=== PATIENT | female | born 1990 | race African-American/Black ===

== ENCOUNTER 2023-01-06 20:25 | Emergency (ER) | payer OTHER, SELFPAY ==
[2023-01-06] VITALS (9 sets, daily range): BP systolic 107–117; BP diastolic 64–79; PULSE 69–85; RESP 13–22; TEMP 37.1; O2SAT 95–100; BMI 26.6
[2023-01-06 21:12] LABS: Add Manual Diff / Slide Review NO; Basophils Absolute Auto 0 /uL (0-100); Basophils Percent Auto 0.3 % (0-2); Eosinophils Absolute Auto 200 /uL (0-450); Eosinophils Percent Auto 2.1 % (2-4); Hematocrit 33.9 % (36-46); Hemoglobin 11.4 g/dL (12.0-16.0); Lymphocytes Absolute Auto 3400 /uL (1100-4500); Lymphocytes Percent Auto 37.1 % (25-40); Mean Corpuscular HGB Conc 33.7 % (30-36); Mean Corpuscular Hemoglobin 30.5 PG (26-34); Mean Corpuscular Volume 90.5 fL (80-100); Monocytes Absolute Auto 500 /uL (0-900); Monocytes Percent Auto 5.3 % (3-14); Neutrophils Absolute Auto 5100 /uL (1500-7000); Neutrophils Percent Auto 55.2 % (50-75); Platelet Count 189 X10^3/uL (150-400); Red Blood Cell Count 3.75 X10^6/uL (4.0-5.2); Red Cell Distribution Width 12.5 % (11.6-14.8); White Blood Cell Count 9.2 X10^3/uL (4.5-11.0)
[2023-01-06 21:13] LABS: Ictotest Urine Negative (Negative)
--- NOTE | 2023-01-06 21:19 | PC.NURSE ---
Pt reports being sent her by her doctor regarding concerns for possible gallbladder issues. Pt has intermittent, sharp, mid-right back pain that began Friday while cooking with no relief from home meds, as well as some difficulty with urination and not making much. Pt had gastric sleeve in 2020 with no complications and has lost 130lbs since then. Pt denies abdominal pain, denies chest pain, denies SOB. LS are clear throughout all posterior wagner. Last BM on . Bowel sounds are active throughout all quadrants. Hx of asthma. Call light within reach. Encouraged to use for needs.
[2023-01-06 21:43] LABS: Alanine Aminotransferase 23 IU/L (<35); Albumin 4.1 g/dL (3.5-5.0); Albumin Globulin Ratio 1.2 (1.0-2.8); Alkaline Phosphatase 64 U/L (38-126); Aspartate Aminotransferase 23 IU/L (14-36); Bilirubin Total 0.4 mg/dL (0.2-1.3); Calcium 8.7 mg/dL (8.4-10.2); Carbon Dioxide 25 mmol/L (22-32); Chloride 104 mmol/L (98-107); Estimated Glomerular Filt Rate > 60 mL/min (>60); Globulin 3.3 g/dL (1.7-4.1); Glucose 102 mg/dL (70-100); HEMOLYSIS < 15 (0-50); Lipase 147 U/L (23-300); Potassium 3.4 mmol/L (3.4-5.1); Sodium 137 mmol/L (137-145); Total Protein 7.4 g/dL (6.3-8.2)
[2023-01-06 21:44] LABS: BUN Creatinine Ratio 16.9 (6-22); Blood Urea Nitrogen 12 mg/dL (7-17)
--- NOTE | 2023-01-06 22:47 | ED_ITS ---
HPI - Back Pain/Injury General Chief Complaint: Back Pain/Injury Stated Complaint: Back pain starting on friday Time Seen by Provider: 01/06/23 20:50 Source: patient History of Present Illness HPI Narrative: Patient is a 32-year-old female history of gastric sleeve presenting today with right flank pain. She reports it has been ongoing for about 4-5 days. She had fever 2 days ago. It is in her right flank it hurts to move and breathe. She denies any injury. It does not radiate or move around to her abdomen or groin. She went to [facility] where she got Dilaudid and prednisone she says it has not helped. She is taken Percocet without any relief she took Dewy Rose without any relief. She denies any nausea or vomiting. Pain is just generally not well controlled. Related Data Home Medications Medication Instructions Recorded Confirmed citalopram 20 mg tablet (Celexa) 20 mg PO QDAY ##0 04/10/17 Previous Rx's Medication Instructions Recorded hydrocodone 5 mg-acetaminophen 325 1 - 2 tab PO Q6HP PRN #10 tabs 04/10/17 mg tablet (Dewy Rose) naproxen 500 mg tablet (Naprosyn) 500 mg PO BIDP PRN #10 tabs 04/10/17 lidocaine 5 % topical patch 1 patch topical DAILY PRN pain 01/07/23 (scale score 4-6) #30 ea Allergies Allergy/AdvReac Type Severity Reaction Status Date / Time penicillin G [PENICILLIN G] Allergy Severe anaphylaxis Verified 01/06/23 23:44 Review of Systems Review of Systems ROS Unobtainable: All systems reviewed & are unremarkable except as noted in HPI and below Patient History Social History Smoking Status: Former smoker Smoking Status: Former smoker Substance Use Type: does not use Exam Initial Vital Signs Initial Vital Signs: Vital Signs Temperature 98.8 F 01/06/23 20:32 Pulse Rate 84 01/06/23 20:32 Respiratory Rate 18 01/06/23 20:32 Blood Pressure 115/75 01/06/23 20:32 Pulse Oximetry 95 01/06/23 20:32 Oxygen Delivery Method Room Air 01/06/23 20:32 GENERAL: Alert well-appearing 32-year-old female and in no acute distress. HEENT: Head atraumatic,EOMI, pupils reactive, face symmetric, moist mucous membranes CARDIOVASCULAR: Regular rate and rhythm without murmurs, rubs or gallops. RESPIRATORY: Breath sounds equal bilaterally, no wheezes rales or rhonchi. ABDOMEN: Soft, nontender. Normoactive bowel sounds all 4 quadrants. No guarding or rebound. : Right flank pain EXTREMITIES: Normal range of motion, no clubbing or edema. Neurovascularly intact NEUROLOGICAL: Alert and oriented x4. SKIN: Warm, dry, no laceration, no petechiae, no rashes or lesions. Course Orders Ordered: ED Orders 01/06/23 20:52 EKG-12 Lead Stat 01/06/23 21:04 Ictotest Urine Stat 01/06/23 21:05 Complete Blood Count AUTO DIFF Stat Comprehensive Metabolic Panel Stat Lipase Stat 01/06/23 23:11 CT abdomen pelvis w con Stat Discontinued Medications Sodium Chloride (Normal Saline 0.9%) 1,000 mls @ 1,000 mls/hr IV BOLUS ONE Stop: 01/07/23 00:39 Last Infusion: 01/07/23 00:45 Dose: 0 mls/hr Documented By: Admin: 01/06/23 23:44 Dose: 1,000 mls/hr Documented By: DWAYNE Lidocaine (Lidocaine Patch 1 Each Adh..Patch) 1 each TOP NOW ONE Stop: 01/07/23 00:41 Last Admin: 01/07/23 00:45 Dose: 1 each Documented By: DWAYNE Ondansetron HCl (Ondansetron 4 Mg Odt) 4 mg PO NOW PRN PRN Reason: Nausea And Vomiting Ondansetron HCl (Ondansetron 4 Mg/2 Ml Inj) 4 mg IV NOW PRN PRN Reason: Nausea And Vomiting Vital Signs Vital signs: Vital Signs - 8 hr 01/06/23 20:32 01/06/23 22:10 01/06/23 21:10 Temperature 98.8 F Pulse Rate 84 78 Respiratory Rate 18 15 Blood Pressure 115/75 116/68 Pulse Oximetry 95 99 Oxygen Delivery Method Room Air 01/06/23 21:30 01/06/23 22:00 01/06/23 22:30 Temperature Pulse Rate Respiratory Rate Blood Pressure 107/74 111/73 113/65 Pulse Oximetry Oxygen Delivery Method 01/06/23 22:30 01/06/23 23:00 01/06/23 23:00 Temperature Pulse Rate 85 76 Respiratory Rate 22 15 Blood Pressure 107/64 Pulse Oximetry 99 98 Oxygen Delivery Method 01/06/23 23:36 01/06/23 23:37 01/06/23 23:37 Temperature Pulse Rate 74 69 Respiratory Rate 13 Blood Pressure 117/79 Pulse Oximetry 100 100 Oxygen Delivery Method 01/07/23 00:00 01/07/23 00:00 01/07/23 00:30 Temperature Pulse Rate 65 Respiratory Rate 13 Blood Pressure 108/79 114/81 Pulse Oximetry 98 Oxygen Delivery Method 01/07/23 00:30 01/07/23 01:00 01/07/23 01:00 Temperature Pulse Rate 62 68 Respiratory Rate 14 15 Blood Pressure 123/83 Pulse Oximetry 100 Oxygen Delivery Method MDM - Back Pain/Injury Lab Data 01/06/23 21:05 01/06/23 21:05 Labs: Lab Results 01/06/23 01/06/23 01/06/23 Range/Units 21:04 21:05 21:05 WBC 9.2 (4.5-11.0) X10^3/uL RBC 3.75 L (4.0-5.2) X10^6/uL Hgb 11.4 L (12.0-16.0) g/dL Hct 33.9 L (36-46) % MCV 90.5 (80-100) fL MCH 30.5 (26-34) PG MCHC 33.7 (30-36) % RDW 12.5 (11.6-14.8) % Plt Count 189 (150-400) X10^3/uL Neut % (Auto) 55.2 (50-75) % Lymph % (Auto) 37.1 (25-40) % Dane % (Auto) 5.3 (3-14) % Eos % (Auto) 2.1 (2-4) % Baso % (Auto) 0.3 (0-2) % Neut # (Auto) 5100 (7386-6723) /uL Lymph # (Auto) 3400 (5931-9406) /uL Dane # (Auto) 500 (0-900) /uL Eos # (Auto) 200 (0-450) /uL Baso # (Auto) 0 (0-100) /uL Sodium 137 (137-145) mmol/L Potassium 3.4 (3.4-5.1) mmol/L Chloride 104 (98-107) mmol/L Carbon Dioxide 25 (22-32) mmol/L BUN 12 (7-17) mg/dL Creatinine 0.71 (0.52-1.04) mg/dL Estimated GFR > 60 (>60) mL/min BUN/Creatinine Ratio 16.9 (6-22) Glucose 102 H (70-100) mg/dL Calcium 8.7 (8.4-10.2) mg/dL Total Bilirubin 0.4 (0.2-1.3) mg/dL AST 23 (14-36) IU/L ALT 23 (<35) IU/L Alkaline Phosphatase 64 (38-126) U/L Total Protein 7.4 (6.3-8.2) g/dL Albumin 4.1 (3.5-5.0) g/dL Globulin 3.3 (1.7-4.1) g/dL Albumin/Globulin Ratio 1.2 (1.0-2.8) Lipase 147 (23-300) U/L Ur Bilirubin Confirm Negative (Negative) Point of Care Testing Test Results Negative Urine Dip Bedside Urine Glucose Negative Bedside Urine Bilirubin + 1 Bedside Urine Ketone - Negative Urine Specific Hood 1.020 Bedside Urine Occult Blood - Negative Bedside Urine pH 6.0 Bedside Urine Protein - Negative Bedside Urine Urobilinogen +/- 1mg Bedside Urine Nitrite - Negative Bedside Urine Leukocytes - Negative Esterase Imaging Data CT scan - abdomen/pelvis: Radiologist's Impression: PROCEDURE:? CT ABDOMEN PELVIS W CON ? INDICATIONS:? right flank pain, hx gastric sleeve ? TECHNIQUE:? After the administration of IV contrast, axial sections were acquired from the lung bases to the pubic symphysis.? Coronal and sagittal reformats were performed.? For radiation dose reduction, the following was used:? automated exposure control, adjustment of mA and/or kV according to patient size. ? COMPARISON:? None. ? FINDINGS:? Image quality:? Excellent.? ? Lung bases:? Unremarkable.? ? Heart:? Heart is normal in size. ? ? ABDOMEN: Liver:? No mass lesion. Gallbladder:? Within normal limits without calcified gallstones.? ? Biliary ducts:? No biliary ductal dilatation.? ? Pancreas:? Unremarkable.? ? Spleen:? Normal in size.? ? Adrenal Glands:? No adrenal nodules.? ? Kidneys and Ureters:? No hydronephrosis.? ? ? Stomach and Bowel:? There are surgical sutures demonstrated along the stomach.? Stomach, small bowel loops, and colon are normal in caliber and wall thickness.? The appendix is normal.? Peritoneum:? No abnormal intraperitoneal fluid.? No free air.? ? Ventral Wall: ? No hernia.? Abdominal Nodes:? No retroperitoneal or mesenteric adenopathy by size criteria.? Vessels:? Aorta and inferior vena cava are normal in size.? ? PELVIS: Pelvic Organs:? An IUD appears in appropriate position, extending into the fundal endometrium.? There is a left ovarian cyst measuring up to approximately 3.1 cm.? Bladder:? Unremarkable.? ? Pelvic Nodes: No enlarged lymph nodes.? Miscellaneous: No inguinal hernias are seen. ? ? ? Bones:? Visualized osseous structures demonstrate no suspicious focal lesions. ? IMPRESSION:? ? 1. No evidence of appendicitis or obstructive uropathy. ? 2. Nonspecific left ovarian cyst measuring up to 3.1 cm.? Further evaluation may be obtained with a pelvic ultrasound if clinically indicated.? ? ? Dictated by: Srinivas Gonzales M.D. on 01/07/2023 at 0:06 ? ? Approved by: Srinivas Gonzales M.D. on 01/07/2023 at 0:13 ECG Data Interpretation: Normal sinus rhythm rate 66 PA interval 156 QRS [address] changes no T- wave inversions MDM Narrative Medical decision making narrative: Patient is a 32-year-old female presenting with right-sided flank pain ongoing for the last 4-5 days. Intermittent fever but afebrile here. Blood work reassuring without leukocytosis or anemia no electrolyte abnormality urinalysis is also negative. CT does not show cause of pain no appendicitis no obstructive uropathy and gallbladder is within normal limits. She is unable to take NSAIDs secondary to her gastric sleeve. She is on narcotics already with minimal r elief. She was also prescribed methocarbamol and sural also without any relief. At this time probably musculoskeletal it is tender to touch other etiologies have been ruled out Discharge Plan Departure Patient Disposition: Home Clinical Impression: Muscle spasm, Back pain Instructions: DI for Muscle Spasm Activity Restrictions/Additional Instructions: *You have been diagnosed with back pain muscle spasm *What to do: At this time dry heating pad light stretches CT was negative blood work is reassuring *Continue to take medications as directed Methocarbamol 1000 mg every 6 hours if needed for muscle spasm can start at 1500 mg every 6 hours for 2-3 days, if needed Lidocaine patch every 12 hours if needed for pain *Follow up with your primary care provider in 2-3 days or call [phone] *Return to ER if you should have increasing back pain numbness tingling weakness nausea vomiting persistent fever [or] any new, worsening or concerning symptoms Prescriptions: New lidocaine 5 % adhesive patch,medicated 1 patch topical DAILY PRN (Reason: pain (scale score 4-6)) Qty: 30 0RF Rx Instructions: leave on most painful area for up to 12 hrs No Action citalopram [Celexa] 20 MG tablet 20 mg PO QDAY Qty: 0 hydrocodone-acetaminophen [Dewy Rose] 5 MG/325 MG tablet 1 - 2 tab PO Q6HP PRNQty: 10 0RF naproxen [Naprosyn] 500 MG tablet 500 mg PO BIDP PRNQty: 10 0RF Referrals: ProviderAngella [Primary Care Provider] - Stand Alone Forms: Patient Portal/API
--- NOTE | 2023-01-06 23:11 | DI.CT.S_ITS ---
PROCEDURE: CT ABDOMEN PELVIS W CON INDICATIONS: right flank pain, hx gastric sleeve TECHNIQUE: After the administration of IV contrast, axial sections were acquired from the lung bases to the pubic symphysis. Coronal and sagittal reformats were performed. For radiation dose reduction, the following was used: automated exposure control, adjustment of mA and/or kV according to patient size. COMPARISON: None. FINDINGS: Image quality: Excellent. Lung bases: Unremarkable. Heart: Heart is normal in size. ABDOMEN: Liver: No mass lesion. Gallbladder: Within normal limits without calcified gallstones. Biliary ducts: No biliary ductal dilatation. Pancreas: Unremarkable. Spleen: Normal in size. Adrenal Glands: No adrenal nodules. Kidneys and Ureters: No hydronephrosis. Stomach and Bowel: There are surgical sutures demonstrated along the stomach. Stomach, small bowel loops, and colon are normal in caliber and wall thickness. The appendix is normal. Peritoneum: No abnormal intraperitoneal fluid. No free air. Ventral Wall: No hernia. Abdominal Nodes: No retroperitoneal or mesenteric adenopathy by size criteria. Vessels: Aorta and inferior vena cava are normal in size. PELVIS: Pelvic Organs: An IUD appears in appropriate position, extending into the fundal endometrium. There is a left ovarian cyst measuring up to approximately 3.1 cm. Bladder: Unremarkable. Pelvic Nodes: No enlarged lymph nodes. Miscellaneous: No inguinal hernias are seen. Bones: Visualized osseous structures demonstrate no suspicious focal lesions. IMPRESSION: 1. No evidence of appendicitis or obstructive uropathy. 2. Nonspecific left ovarian cyst measuring up to 3.1 cm. Further evaluation may be obtained with a pelvic ultrasound if clinically indicated. Dictated by: Srinivas Gonzales M.D. on 01/07/2023 at 0:06 Approved by: Srinivas Gonzales M.D. on 01/07/2023 at 0:13
[2023-01-06] MEDS: SODIUM CHLORIDE 0.9% 1,000 ML 1000 ML IV (23:44)
--- NOTE | 2023-01-06 23:49 | PC.NURSE ---
Pt was getting up from wheelchair to CT machine and reported feel my heart in my chest. GIGI Rosario made this RN aware. This RN went and assessed patient and found heart rate to be in the 76. Pt denied chest pain, denied SOB, and denied current feelings of elevated heart rate. When patient stood back after scan her heart rate went to 99. While administering IV fluids per MAR patient again felt like her heart rate was elevated. methods analyst data processing did show a rate of 120 for a few seconds then back to 74. Pt again denied chest pain or SOB. Provider aware. Call light within reach. Encouraged to call for changes.
--- NOTE | 2023-01-06 23:56 | PC.NURSE ---
Pt denies wanting any pain meds at this time.
[2023-01-07] VITALS: BP 108/79; PULSE 65; RESP 13; O2SAT 98
[2023-01-07 00:30] VITALS: BP 114/81; PULSE 62; RESP 14; O2SAT 100
[2023-01-07] MEDS: LIDOCAINE PATCH 1 EACH ADH..PATCH TOP (00:45)
[2023-01-07 01:00] VITALS: BP 123/83; PULSE 68; RESP 15
== END 2023-01-07 01:15 | disposition home or self-care (01) ==
PROVIDERS: Emergency Provider Emergency Medicine
DX: M62.830 Muscle spasm of back (principal); R10.9 Unspecified abdominal pain; Z98.84 Bariatric surgery status
CPT/HCPCS: 36415; 74177; 80053; 81003; 81025; 83690; 85025; 93005; 93010; 99284; Q9967